=== PATIENT | male | born 1975 | race Caucasian/White ===

== ENCOUNTER 2020-03-29 20:04 | Emergency (ER) | payer BC ==
[2020-03-29] MEDS ORDERED: Acetaminophen/HYDROcodone 325-10 MG Tab PO ONE ×2 (20:05→20:24)
--- NOTE | 2020-03-29 20:21 | EDM.PDOC ---
ED HPI GENERAL MEDICAL PROBLEM - General Chief Complaint: Lower Extremity Injury/Pain Stated Complaint: RIGHT LEG BROKEN Time Seen by Provider: 03/29/20 20:19 Source of Information: Reports: Patient History Limitations: Reports: No Limitations - History of Present Illness INITIAL COMMENTS - FREE TEXT/NARRATIVE: slipped on ice and had right leg bent under him, manage to get up and came in with family. Right Lower Leg Pain Score (Numeric/FACES): 7 - Related Data Allergies Allergy/AdvReac Type Severity Reaction Status Date / Time No Known Allergies Allergy Verified 03/29/20 20:35 Review of Systems - Review of Systems Review Of Systems: Comprehensive ROS is negative, except as noted in HPI. ED EXAM, GENERAL - Physical Exam Exam: See Below Exam Limited By: No Limitations General Appearance: Alert, WD/WN, Mild Distress, Moderate Distress, Other (discomfort) Ears: Hearing Grossly Normal Throat/Mouth: Normal Voice, No Airway Compromise Head: Atraumatic Neck: Non-Tender, Full Range of Motion Respiratory/Chest: No Respiratory Distress Cardiovascular: Regular Rate, Rhythm GI/Abdominal: Soft, Non-Tender (Male) Exam: Deferred Rectal (Males) Exam: Deferred Extremities: Other (right leg tender R/P, local swelling, unable bear wieght) Neurological: Alert, Oriented, Normal Cognition, No Motor/Sensory Deficits Psychiatric: Tearful Skin Exam: Warm, Dry, Normal Color Lymphatic: No Adenopathy Course - Vital Signs Last Recorded V/S: Last Vital Signs Temp 37.1 C 03/29/20 20:17 Pulse 104 H 03/29/20 20:17 Resp 19 03/29/20 20:17 BP 129/90 03/29/20 20:17 Pulse Ox 97 03/29/20 20:17 - Orders/Labs/Meds Meds: Medications Discontinued Medications Generic Name Dose Route Start Last Admin Trade Name Freq PRN Reason Stop Dose Admin Hydrocodone Bitart/Acetaminophen 1 tab 03/29/20 20:24 03/29/20 20:39 [place] 325-10 Mg PO 03/29/20 20:25 1 tab ONETIME ONE Administration - Re-Assessments/Exams Free Text/Narrative Re-Assessment/Exam: 03/29/20 21:00 results discussed with pt. Departure - Departure Time of Disposition: 21:00 Disposition: Home, Self-Care 01 Condition: Good Clinical Impression: Fibula upper end fracture Qualifiers: Encounter type: initial encounter Fracture type: closed Fracture morphology: other fracture Laterality: right Qualified Code(s): S82.831A - Other fracture of upper and lower end of right fibula, initial encounter for closed fracture - Discharge Information Forms: ED Department Discharge Additional Instructions: 1) wear knee immobilizer and use crutches until re-exam by orthopedist 2) see family doctor or clinic tomorrow for ORTHOPEDIC REFERRAL for fibula fracture 3) elevate leg as much as possible rx togo; norco 10 bid prn x 3 Sepsis Event Note (ED) - Focused Exam Vital Signs: Vital Signs Temp Pulse Resp BP Pulse Ox 03/29/20 20:17 37.1 C 104 H 19 129/90 97
--- NOTE | 2020-03-29 20:53 | CR ---
PROCEDURE INFORMATION: Exam: XR Right Tibia and Fibula Exam date and time: 03/29/2020 8:32 PM Age: 44 years old Clinical indication: Other: Fall, mid tib-fib pain; Additional info: Injury TECHNIQUE: Imaging protocol: XR Right tibia and fibula. Views: 2 views. Total images: 2 COMPARISON: No relevant prior studies available. FINDINGS: Bones/joints: Minimally displaced acute oblique fracture through the proximal right fibula. Soft tissues: Scattered soft tissue calcifications. Soft tissue edema. IMPRESSION: Acute minimally displaced oblique fracture proximal right fibula.
[2020-03-29] MEDS ORDERED: Acetaminophen/HYDROcodone 325-10 MG Tab ONE (21:04)
== END 2020-03-29 21:11 | disposition home or self-care (01) ==
LOC: DL.ED 20:04
DX: S82.831A Other fracture of upper and lower end of right fibula, initial encounter for closed fracture (principal); W00.0XXA Fall on same level due to ice and snow, initial encounter
CPT/HCPCS: 73590; 99283; A9270